=== PATIENT | male | born 1945 | race Caucasian/White ===

== ENCOUNTER 2017-08-23 09:39 | Inpatient (IN) ==
--- OUTSIDE RECORDS SUMMARY | 2017-08-23 10:04 | External Medical Summary ---
:1945 Author Organization [employer] Care Team Providers Name Role Phone Tuyet Frenchbraydenrossshameka Provider Role Unavailable Allergies, Adverse Reactions, Alerts Substance Reaction Event Type Clinoril Info Not Available Drug Allergy Zestril Info Not Available Non Drug Allergy Problems Problem Type Condition Code Onset Dates Condition Status Problem Atrial fibrillation 427.31 Active Problem Ventricular Tachycardia, Sustained 427.1 Active Problem S/P Bivent ICD V45.02 Active Problem Congestive Heart Failure, 428.0 Active Unspecified Problem Hyperlipidemia 272.4 Active Problem CAD (coronary artery disease) I25.10 Active Problem Hypothyroidism 244.9 Active Problem Atrial fibrillation 427.31 Active Problem CAD 414.01 Active Problem Chronic Anticoagulation V58.61 Active Assessment Biventricular ICD (implantable Z95.810 Active cardioverter-defibrillator) in place Assessment CAD (coronary artery disease) I25.10 Active Assessment VT (ventricular tachycardia) I47.2 Active Problem High Risk Med V58.69 Active Assessment Congestive heart failure I50.9 Active Problem Cardiomyopathy, Ischemic 414.8 Active Medications Medication Code Code Instructions Start End Status Dosage System Date Date Aspirin [facility] [address]-95 81 MG Orally 1/4 tablet Once a day Spironolactone [facility] [address]-67 25 MG Orally qd 1 tablet Allopurinol [facility] [address]-46 100 MG Orally 1 tablet Once a day Asmanex HFA [facility] [address]-21 100 MCG/ACT 2 puffs in Inhalation Once the a day evening Digoxin [facility] [id number] 125 TAKE ONE TABLET BY MOUTH DAILY Magnesium [facility] [address]73-[address]700 400 mg Orally 1 tablets Once a day Furosemide [facility] [address]-79 40 MG Orally 1 tablet Twice a day Amiodarone HCl [facility] [address]-85 200 MG Orally 1 tablet Once a day Vitamin B-[address] [facility] [address]-75 2000 mg Orally 1 tablet Once a day Cozaar [facility] 45997112263 50 TAKE ONE TABLET BY MOUTH DAILY Januvia [facility] [address]-92 25 MG Orally 1 tablet Once a day Coumadin [facility] [address]-08 3 MG Orally qd as directed Levothyroxine [facility] [address]-53 50 MCG Orally 1 tablet Sodium Once a day on an empty stomach in the morning Metoprolol [facility] 31981291159 100 Orally 1 tablet Succinate twice a day Crestor [facility] [address]-43 20 MG Orally 1/2 tablet Once a day oxgen [facility] 0 qhs 4L Metoprolol [facility] 76688442771 100 TAKE ONE Succinate ER TABLET BY MOUTH TWICE A DAY Folic Acid [facility] [address]-81 1 MG Orally 1 tablet Once a day Klor-Con M10 [facility] [address]-70 10 MEQ Orally 1 tablet Twice a day Procedures Procedure Coding System Code Date Ofc Program ICD Dual, Staff CPT-4 19426 Aug 27, 2016 Office Visit, Est Pt., Level 4 CPT-4 90779 Aug 27, 2016 Vital Signs Date/Time: Aug 27, 2016 BMI 31.66 Index Weight 227 lbs Height 71 in Cardiac Monitoring Heart Rate 60 /min Oximetry 96 % Blood Pressure Diastolic 66 mm Hg Blood Pressure Systolic 100 mm Hg Results No Known Results Summary Purpose [employer] Submission
--- OUTSIDE RECORDS SUMMARY | 2017-08-23 10:04 | External Medical Summary ---
:1945 Author Organization [employer] Care Team Providers Name Role Phone Tatianna French Provider Role Unavailable Allergies No Known Allergies Problems Problem Type Condition Code Onset Dates Condition Status Problem Atrial fibrillation 427.31 Active Problem Ventricular Tachycardia, Sustained 427.1 Active Problem S/P Bivent ICD V45.02 Active Problem High Risk Med V58.69 Active Problem Cardiomyopathy, Ischemic 414.8 Active Problem Congestive Heart Failure, 428.0 Active Unspecified Problem Hyperlipidemia 272.4 Active Problem CAD (coronary artery disease) I25.10 Active Problem Hypothyroidism 244.9 Active Problem Atrial fibrillation 427.31 Active Problem CAD 414.01 Active Problem Chronic Anticoagulation V58.61 Active Medications No Known Medications Results No Known Results Summary Purpose [employer] Submission
--- NOTE | 2017-08-23 10:21 | Emergency Department Report ---
Chest Pain HPI - General Chief Complaint: Chest Pain Stated Complaint: chest pain when coughing Time Seen by Provider: 08/23/17 10:18 Source: patient, family () Mode of arrival: ambulatory Limitations: other (poor historian) - History of Present Illness HPI narrative: Patient was diagnosed with probable pneumonia on August 08 and completed antibiotics recently for that. states that patient has really never regained his strength following that diagnosis. Patient also has a history of congestive heart failure. Patient last saw Dr. Pascual within the past week however was not as weak as he is at this time. Patient complains of chest pain with breathing and coughing. reports a productive cough that is occasionally colored yellow but is normally clear. states that this morning the patient seemed very weak and just not himself, and having had been ill since early July, patient was brought to the emergency department. reports that he rarely complains of CP so that concerned her also. He is alert and oriented. He is in no acute distress. He is a poor historian however. Patient's blood pressure is 79 systolically, states normal blood pressure for patient is 90 systolically; Patient does have hx of HTN. Patient also did take his blood pressure medications this morning. Room air sats 88-92 % Patient has home oxygen that he uses at ; states room air sats at home during the day usually 95%, even recently. Patient is in a paced rhythm. Patient deny any fevers, however states he has been more chilled than normal. complaint: chest pain, other Occurred At: home (and coughing) Onset (ago): week(s) Duration: intermittent Onset: other (and coughing) Pain location: substernal Severity: similar to previous episodes Severity scale (1-10): 10 ("when it hits") Quality: sharp Relieving factors: nothing Exacerbating factors: other (coughing or deep breathing) Context: recent illness (pneumonia) Associated symptoms: cough Nitro Today: no nitro taken today - Related Data Home Medications Medication Instructions Recorded Confirmed Furosemide 40 mg PO DAILY #0 12/26/08 08/23/17 Spironolactone [Aldactone] 25 mg PO DAILY #0 04/18/09 08/23/17 Folic Acid 1 mg PO DAILY #0 08/01/11 08/23/17 Magnesium Oxide 400 mg PO DAILY #0 08/01/11 08/23/17 Allopurinol 100 mg PO DAILY #0 04/04/12 08/23/17 Levothyroxine Sodium 50 mcg PO DAILY #0 09/09/13 08/23/17 Metoprolol Succinate 100 mg PO BID #0 09/09/13 08/23/17 Aspirin [Aspirin EC] 81 mg PO DAILY #0 11/29/16 08/23/17 Cyanocobalamin/Cobamamide [B-12 5,000 mcg SL DAILY #0 11/29/16 08/23/17 5,000 Mcg Sublingual Tab] Digoxin 125 mcg PO DAILY #0 11/29/16 08/23/17 Rosuvastatin Calcium 10 mg PO HS #0 11/29/16 08/23/17 Warfarin Sodium 3 mg PO SuTuThSa@1700 #0 11/29/16 08/23/17 Warfarin Sodium 6 mg PO MoWeFr@1700 #0 11/29/16 08/23/17 Cholecalciferol (Vitamin D3) 1,000 unit PO DAILY 08/23/17 08/23/17 [Vitamin D3] Cyanocobalamin (Vitamin B-12) 1,000 mcg PO DAILY 08/23/17 08/23/17 [Vitamin B-12] Allergies Allergy/AdvReac Type Severity Reaction Status Date / Time lisinopril Allergy Unknown Verified 08/23/17 09:50 sulindac Allergy Unknown Verified 08/23/17 09:50 Review of Systems All systems: reviewed and negative except as stated Constitutional: Reports: as per HPI, chills, weakness. Denies: fever Eyes: Denies: eye pain ENT: Denies: ear pain, throat pain Cardiovascular: Reports: as per HPI, chest pain Respiratory: Reports: as per HPI, cough Gastrointestinal: Denies: abdominal pain, nausea, vomiting, diarrhea Genitourinary: Denies: urgency, dysuria Musculoskeletal: Denies: back pain, joint swelling Integumentary: Denies: rash Neurological: Reports: weakness (generalized). Denies: headache, numbness PFSH Patient Stated Medical History Cataracts Yes Hypertension Yes Sleep Apnea Yes Diabetes Mellitus Type 2 Yes Hx Renal Disease Yes Clinic Medical History Digitalis toxicity (Acute Medical) - Social History Smoking status: Former smoker Physical Exam - Limitations Limitations: no limitations - General General appearance: alert, other (generalized weak) - Normal Exams: Head:: Normocephalic without trauma Eyes:: Pupils are PERRLA w/ EOMI, No scleral icterus, irritation, or foreign bodies noted ENMT:: No facial trauma, nasal exudates, pharyngeal erythema, or exudates are noted Neck:: Full range of motion, without adenopathy, JVD, bruits or thyromegaly Abdomen:: Bowel sounds positive, soft, non-tender, non-distended, no hepatosplenomegaly, masses or bruits noted Lymphatic:: No lymphadenopathy, or lymphedema noted Musculoskeletal:: No tenderness, or deformity noted, good range of motion, all extremities Integumentary:: No rashes, hives, or bruising noted, hair and nails, without abnormality Neurological:: Patient is alert Psychiatric:: Patient exhibits, appropriate attention, emotion and affect - Respiratory Respiratory exam: Present: crackles - Cardiovascular Cardiovascular exam: Present: regular rate Course Course Narrative: Chest x-ray compared to chest x-ray obtained August 08 viewed by ED physician. No worsening from prior xray. - Reevaluation(s) Reevaluation #2 Time Reevaluation: 12:03 (room air sats are 88-92%. Patient's BNP is elevated at 14,000, there is no peripheral edema noted. Patient's dig level is toxic at 3.3. Will admit to hospitalist service diagnosis of dig toxicity) - Consultations Consultation #1: Shoshana Time: 12:03 Vital Signs Pulse Rate 60 08/23/17 09:45 Temperature 98.2 F 08/23/17 09:52 Pulse Rate 60 08/23/17 12:00 Respiratory Rate 24 08/23/17 12:00 Blood Pressure 84/58 08/23/17 12:00 Pulse Oximetry 89 L 08/23/17 12:00 Chest Pain - Lab Data Result diagrams: 08/23/17 10:34 08/23/17 10:26 Lab Results 08/23/17 08/23/17 08/23/17 Range/Units 10:26 10:34 10:34 WBC 12.0 H (4.5-11.0) T/MM3 RBC 4.12 L (4.50-5.90) M/MM3 Hgb 12.6 L (13.5-17.5) GM/DL Hct 39.0 L (41-53) % MCV 94.7 (80-100) UM3 MCH 30.6 (26-34) UUG MCHC 32.3 (31-37) GM/DL RDW Std Deviation 60.1 H (36.9-50.2) FL Plt Count 208 (130-400) T/MM3 MPV 10.5 (9.4-12.4) UM3 Immature Gran % (Auto) 0.5 (0.0-0.5) % Neut % (Auto) 80.0 H (33-66) % Lymph % (Auto) 6.4 L (23-45) % Bowman % (Auto) 12.5 H (0-9.0) % Eos % (Auto) 0.3 (0-4) % Baso % (Auto) 0.3 (0-2) % Neut # (Auto) 9.6 H (1.8-7.7) T/MM3 Lymph # (Auto) 0.8 L (1-4.8) T/MM3 Bowman # (Auto) 1.5 H (0-0.8) T/MM3 Eos # (Auto) 0.0 (0-0.5) T/MM3 Baso # (Auto) 0.0 (0-0.2) T/MM3 Abs Immat Gran (auto) 0.06 H (0.00-0.03) T/MM3 INR (0.99-1.21) Turbidity < 20 (0-20) Sodium 136 (134-144) MEQ/L Potassium 4.6 (3.6-5) MEQ/L Chloride 101 (98-107) MEQ/L Carbon Dioxide 29 (22-30) MEQ/L Anion Gap 6 (5-15) MEQ/L BUN 24.0 H (9-20) MG/DL Creatinine 1.3 (0.8-1.5) MG/DL GFR Calculation 54 BUN/Creatinine Ratio 19 (6-26) RATIO Glucose 117 H (75-110) MG/DL Calculated Osmolality 267 (261-280) MOSM/KG Calcium 8.2 L (8.4-10.2) MG/DL Magnesium 2.1 (1.6-2.3) MG/DL Total Bilirubin 1.40 H (0.20-1.30) MG/DL Icterus Index < 2 (0-7) AST 64 H (17-59) U/L ALT 60 (21-72) U/L Alkaline Phosphatase 88 (38-126) U/L Troponin I 0.013 (0-0.12) ng/ml B-Natriuretic Peptide 44988 H (0-175) pg/mL Total Protein 7.0 (6.3-8.2) G/DL Albumin 3.2 L (3.5-5.0) G/DL Globulin 3.8 H (2.4-3.6) G/DL Albumin/Globulin Ratio 0.8 L (1.1-2.2) RATIO Plasma Lactate 1.3 (0.6-2.2) MMOL/L Procalcitonin < 0.05 NG/ML Specimen Hemolysis 58 H (0-25) Digoxin 3.3 H* (0.8-2.0) NG/ML 08/23/ Range/Units 10:34 WBC (4.5-11.0) T/MM3 RBC (4.50-5.90) M/MM3 Hgb (13.5-17.5) GM/DL Hct (41-53) % MCV (80-100) UM3 MCH (26-34) UUG MCHC (31-37) GM/DL RDW Std Deviation (36.9-50.2) FL Plt Count (130-400) T/MM3 MPV (9.4-12.4) UM3 Immature Gran % (Auto) (0.0-0.5) % Neut % (Auto) (33-66) % Lymph % (Auto) (23-45) % Bowman % (Auto) (0-9.0) % Eos % (Auto) (0-4) % Baso % (Auto) (0-2) % Neut # (Auto) (1.8-7.7) T/MM3 Lymph # (Auto) (1-4.8) T/MM3 Bowman # (Auto) (0-0.8) T/MM3 Eos # (Auto) (0-0.5) T/MM3 Baso # (Auto) (0-0.2) T/MM3 Abs Immat Gran (auto) (0.00-0.03) T/MM3 INR 2.73 H (0.99-1.21) Turbidity (0-20) Sodium (134-144) MEQ/L Potassium (3.6-5) MEQ/L Chloride (98-107) MEQ/L Carbon Dioxide (22-30) MEQ/L Anion Gap (5-15) MEQ/L BUN (9-20) MG/DL Creatinine (0.8-1.5) MG/DL GFR Calculation BUN/Creatinine Ratio (6-26) RATIO Glucose (75-110) MG/DL Calculated Osmolality (261-280) MOSM/KG Calcium (8.4-10.2) MG/DL Magnesium (1.6-2.3) MG/DL Total Bilirubin (0.20-1.30) MG/DL Icterus Index (0-7) AST (17-59) U/L ALT (21-72) U/L Alkaline Phosphatase (38-126) U/L Troponin I (0-0.12) ng/ml B-Natriuretic Peptide (0-175) pg/mL Total Protein (6.3-8.2) G/DL Albumin (3.5-5.0) G/DL Globulin (2.4-3.6) G/DL Albumin/Globulin Ratio (1.1-2.2) RATIO Plasma Lactate (0.6-2.2) MMOL/L Procalcitonin NG/ML Specimen Hemolysis (0-25) Digoxin (0.8-2.0) NG/ML Disposition Clinical Impression: Digitalis toxicity [place] [facility] [place] Stable Prescriptions: No Action Furosemide 40 mg PO DAILY #0 Magnesium Oxide 400 mg PO DAILY #0 Allopurinol 100 mg PO DAILY #0 Levothyroxine Sodium 50 mcg PO DAILY #0 Metoprolol Succinate 100 mg PO BID #0 Aspirin [Aspirin EC] 81 mg PO DAILY #0 Cyanocobalamin/Cobamamide [B-12 5,000 Mcg Sublingual Tab] 5,000 mcg SL DAILY #0 Warfarin Sodium 3 mg PO SuTuThSa@1700 #0 Digoxin 125 mcg PO DAILY #0 Warfarin Sodium 6 mg PO MoWeFr@1700 #0 Cyanocobalamin (Vitamin B-12) [Vitamin B-12] 1,000 mcg PO DAILY Spironolactone [Aldactone] 25 mg PO DAILY #0 Folic Acid 1 mg PO DAILY #0 Rosuvastatin Calcium 10 mg PO HS #0 Cholecalciferol (Vitamin D3) [Vitamin D3] 1,000 unit PO DAILY Referrals: River Noel MD [Family Provider] - Time of Disposition: 12:05 - Seen By: midlevel
[2017-08-23] MEDS: SALINE FLUSH 10ml SYRINGE IVF PRN ×2 (11:15→12:09)
[2017-08-23] MEDS ORDERED: FUROSEMIDE 40 MG/4 ML INJECTION IVP ONE (11:51)
[2017-08-23 13:35] VITALS: BMI 27.9
--- NOTE | 2017-08-23 13:50 | History & Physical Report ---
History of Present Illness Date: 08/23/17 Chief complaint: cough, chest pain and progressive weakness HPI: Patient presents to ED today with 3 wk h/o cough, progressive weakness and chest pain with coughing over the past few days. He was seen by his PCP Aug 08 with CXR showing pulmonary edema not excluding possibility of viral or atypical pneumonia. states pt was treated with 10 days of cephalexin and "a shot in the office." She didn't feel he got better and, if anything, maybe got worse while on the atbx. He has clear sputum production occasionally. Patient has CHF and interstitial lung disease, but usually doesn't have a cough or weakness like he does currently. Patient has multiple comorbidities and follows with several specialists. Per , last A1C was 5.6 earlier this year. Patient has lost weight and changed his diet and no longer requires diabetic medication. She also reports his last echocardiogram was almost a year ago. She reports his ejection fraction was 15% . He is due for echocardiogram in September. Per pulmonology office notes, he has abnormal PFTs. PFTs were most recently performed 06/15 and were "relatively stable compared to last year except for decline in DLCO. His TLC is preserved and his vital capacities remain normal." Recommendation from that visit was to repeat PFT in one year, follow-up with oven technician in 6 months and reevaluate his obstructive sleep apnea given his significant weight loss. His last "shock" from his ICD was in December 2016. In ED, patient had repeat CXR showing minimal change from previous on 08/08. His procalcitonin and lactate were normal and WBC was 12K. His dig was elevated at 3.3. His BNP was significantly elevated at 14,100. He was given Lasix 40mg IV in ED for pulmonary edema. He takes Lasix 40mg po qd, although last office note from cardiology lists dose of 40mg BID. Given his elevated digoxin level, patient was admitted to the hospitalist service for observation. Review of Systems All systems PM: 10-point ROS was reviewed, no additional remarkable complaints except - Constitutional Constitutional: Present: weight loss (intentional) - EENMT EENMT Comments: cold type sxs per - Cardiovascular Cardiovascular: Present: chest pain (w/ cough) - Respiratory Respiratory: Present: cough, dyspnea on exertion (no worse than usual) - Gastrointestinal Gastrointestinal: Present: constipation (occasional) - Neurological Neurological: Present: weakness - Endocrine Endocrine: Present: other (chronic body temp of 96 - per ) PFSH Medical History CKD - Stage 3 CAD COPD BUZZ - (on CPAP) Ischemic cardiomyopathy Interstitial lung disease CHF Paroxysmal VT - (has biventricular ICD) Atrial fibrillation Hyperlipidemia HTN Diabetes - Type 2 Hypothyroidism Gout H/o AAA repair H/o bladder CA Surgical History: Abdominal aortic aneurysm repair (2012 - age 68), colonoscopy (08/09 - hyperplastic polyps), inguinal herniorrhaphy, L (2008), AICD replacement (2013), vasectomy, nasal endoscopy, heart cath w/ stent (1997), heart cath 2015 - [place] per , cystoscopy (09/2006), TURP Family History: Father-emphysema Mother-pacemaker, hypertension, coronary artery disease Son-hyperlipidemia Son-Hyperlipidemia, Pericarditis Brother-MS Brother-Pacemaker - Social History Smoking status: Former smoker Packs-years: 40 Substance use type: does not use Alcohol intake frequency: does not drink Housing: house Household members: spouse Current occupational status: retired Does patient use chewing tobacco?: No Current residence: Apartment/Private Home Social history: PCP - Dr. Noel Cell Maker - Dr. Cesar Arias Jacker Feeder - Dr. French Urologist - Dr King Measurement Supervisor- Medications Home Medications Medication Instructions Recorded Confirmed Type Furosemide 40 mg PO DAILY #0 12/26/08 08/23/17 History Spironolactone [Aldactone] 25 mg PO DAILY #0 04/18/09 08/23/17 History Folic Acid 1 mg PO DAILY #0 08/01/11 08/23/17 History Magnesium Oxide 400 mg PO DAILY #0 08/01/11 08/23/17 History Allopurinol 100 mg PO DAILY #0 04/04/12 08/23/17 History Levothyroxine Sodium 50 mcg PO DAILY #0 09/09/13 08/23/17 History Metoprolol Succinate 100 mg PO BID #0 09/09/13 08/23/17 History Aspirin [Aspirin EC] 81 mg PO DAILY #0 11/29/16 08/23/17 History Cyanocobalamin/Cobamamide [B-12 5,000 mcg SL DAILY #0 11/29/16 08/23/17 History 5,000 Mcg Sublingual Tab] Digoxin 125 mcg PO DAILY #0 11/29/16 08/23/17 History Rosuvastatin Calcium 10 mg PO HS #0 11/29/16 08/23/17 History Warfarin Sodium 3 mg PO SuTuThSa@1700 #0 11/29/16 08/23/17 History Warfarin Sodium 6 mg PO MoWeFr@1700 #0 11/29/16 08/23/17 History Cholecalciferol (Vitamin D3) 1,000 unit PO DAILY 08/23/17 08/23/17 History [Vitamin D3] Cyanocobalamin (Vitamin B-12) 1,000 mcg PO DAILY 08/23/17 08/23/17 History [Vitamin B-12] Allergies Allergy/AdvReac Type Severity Reaction Status Date / Time lisinopril Allergy Unknown Verified 08/23/17 09:50 sulindac Allergy Unknown Verified 08/23/17 09:50 Exam Vital Signs: Temperature 97.7 F 08/23/17 13:27 Pulse Rate 67 08/23/17 13:27 Respiratory Rate 20 08/23/17 13:27 Blood Pressure 92/62 08/23/17 13:27 Pulse Oximetry 95 08/23/17 13:27 Height/Weight/BMI: Height 1.73 m Weight 83.3 kg Body Mass Index 27.9 - Constitutional Present: no acute distress, well nourished, well developed - Routine HEENT Exam Head: Present: normocephalic, atraumatic Eye: Present: EOMI, PERRL ENT: Present: mucous membranes moist, oropharynx clear - Routine Neck Exam Present: supple. Absent: lymphadenopathy, thyromegaly - Routine Respiratory Exam Present: CTA bilaterally, crackles (slight - RLL). Absent: wheezes - Routine Cardiovascular Exam Present: RRR, murmur (Gr 2 systolic) - Routine Abdominal Exam Present: soft, normoactive bowel sounds, non distended. Absent: tenderness - Routine Extremities Exam Present: no edema, normal capillary refill - Routine Skin Exam Present: dry, warm, ecchymosis (arms b/l) - Routine Neurological Exam Present: alert, oriented X3 CN 3-12 intact - Routine Psychiatric Exam Present: normal affect, cooperative Results - Labs CBC & Chem 7: 08/23/17 10:34 08/23/17 10:26 Labs: Laboratory Tests 08/23/17 10:34 INR 2.73 H Laboratory Tests 08/23/17 10:26 Total Bilirubin 1.40 H AST 64 H ALT 60 Laboratory Tests 08/23/17 10:26 Troponin I 0.013 B-Natriuretic Peptide 50971 H Laboratory Tests 08/23/17 08/23/17 08/23/17 10:26 10:34 14:36 Plasma Lactate 1.3 1.7 Procalcitonin < 0.05 Laboratory Tests 08/23/17 12:36 Ur Collection Type Urine, clean catch Urine Color Yellow Urine Clarity Clear Urine pH 6.5 Ur Specific [place] 1.010 L Urine Protein Negative Urine Glucose (UA) Negative Urine Ketones Negative Urine Occult Blood Trace-intact Urine Nitrate Negative Urine Bilirubin Negative Urine Urobilinogen 0.2 Ur Leukocyte Esterase Negative Laboratory Tests 08/23/17 10:26 Digoxin 3.3 H* Assessment and Plan (1) Digitalis toxicity Current visit: Yes Status: Acute Assessment and Plan: Admission diagnoses Digitalis toxicitiy Leukocytosis Chest pain - likely pleuritic Cough - r/o interstitial lung ds vs infectious process (bacterial vs viral) vs CHF exacerbation Chronic diagnoses CKD - Stage 3 CAD COPD BUZZ - (on CPAP and 4L O2 at [facility]) Ischemic cardiomyopathy Interstitial lung disease CHF Paroxysmal VT - (has biventricular ICD) Paroxysmal atrial fibrillation (chronic anticoagulation with warfarin) Hyperlipidemia HTN Diabetes - Type 2 (controlled w/o medication) Hypothyroidism Gout H/o AAA repair H/o bladder CA Plan: Admit to observation under hospitalist service, Dr. Anna attending. Check respiratory panel and sputum culture given respiratory sxs. Start Duoneb treatments, IS, acapella. Dr Anna to determine if patient needs antibiotics. Given the neg lactate and procalcitonin and lack of improvement on recent atbx, suspect his cough/ weakness is unlikely bacterial in etiology. Check glucose daily after supper as patient has been under good control. Will check more frequently if sugars are elevated. Hold dig and recheck level in am. Serial troponins given cardiac history and presenting c/o chest pain. Pharmacy consult for warfarin. Warfarin for VTE prophylaxis. Monitor I&O and daily weights. Consider echocardiogram vs waiting to do this outpatient through his food services coordinator. ( reports he is due in Sep.) Consider another dose of IV Lasix tomorrow depending on his kidney function in the am. Patient wishes to be a FULL CODE Care to return to Dr. Noel on dismissal. Case discussed with Dr. Anna and family. Previous notes reviewed from pulmonology, cardiology and PCP. Maikel Anna M.D. 08/23/17 6:37 PM I have independently evaluated and examined this patient. I reviewed the chart, the patient's history, and the FILM PRINTER/PA's documented findings as above. We discussed and formulated the assessment and plan as above with additions as below: Mr. Zazueta is hard of hearing and often defers history to his . The patient reports persistent cough as described previously but he indicates cough is been getting better progressively. Mrs. Zazueta indicated that cough is not really the concern that brought him to the emergency room today but instead the patient's complaint of chest pain over the last 2 days. Patient reports that chest pain is substernal and rubs over his anterior chest wall fairly widely describing the pain. He thinks it gets worse when he breathes in and reports it' s definitely worse when he coughs. He's had it longer than 2 days but he only told his about it 2 days ago. His weight has been stable over the past couple of days but he is intentionally lost 40 pounds in the past 6 months. He has had some daytime hypoxia recently for which they began using oxygen intermittently while awake instead of just 4 L at night as previously prescribed. His also reports gradually progressive weakness and that the patient moves around more slowly and cannot walk as far as he did a couple weeks ago. Chart review indicates digoxin level was slightly elevated at 2.2 on 12/09/16. Patient denies palpitations. There are bibasilar crackles in the posterior lung galeano but respirations are nonlabored and air flow is good. Oxygen saturation 84% on room air. Cardiac rhythm is regular with gallop present, neck veins are distended and there is suggestion of HJR Anterior chest wall/costochondral margins nontender to palpation No lower extremity edema Abdomen benign Chest x-ray reviewed by myself-marked cardiomegaly, mild increased vascular markings without focal infiltrate. EKG also reviewed by myself demonstrating biventricular pacing and no significant change from past EKG. Respiratory viral panel positive for rhinovirus. Convert to inpatient due to hypoxia. Symptomatic treatment of cough-Tessalon Perles ordered, respiratory precautions initiated. Suspect there is a component of volume overload contributing to cough in addition to viral URI. Diuresis, hold digoxin. Decrease frequency of digoxin dosing to Friday/Friday /Friday at discharge. Discussed with ER provider, outpatient records and past hospital records reviewed. DVT Prophylaxis: Coumadin Resuscitation Status: Full Code Hospital Course Summary Disclaimer: The visit summary below is not to be considered part of the above Progress Note. Hospital Course: Admission diagnoses Digitalis toxicitiy Leukocytosis Chest pain - pleuritic (neg troponin) Cough - r/o interstitial lung ds vs infectious process (bacterial vs viral) vs CHF exacerbation Chronic diagnoses CKD - Stage 3 CAD COPD BUZZ - (on CPAP and 4L O2 at [facility]) Ischemic cardiomyopathy Interstitial lung disease CHF Paroxysmal VT - (has biventricular ICD) Paroxysmal atrial fibrillation (chronic anticoagulation with warfarin) Hyperlipidemia HTN Diabetes - Type 2 (controlled w/o medication) Hypothyroidism Gout H/o AAA repair H/o bladder CA 08/23/17 -Hospital Admission for Observation Admit to observation under hospitalist service, Dr. Anna attending. Check respiratory panel and sputum culture given respiratory sxs. Start Duoneb treatments, IS, acapella. Check glucose daily after supper as patient has been under good control. Will check more frequently if sugars are elevated. Hold dig and recheck level in am. Pharmacy consult for warfarin. Warfarin for VTE prophylaxis. Monitor I&O and daily weights. Consider echocardiogram vs waiting to do this outpatient through his food services coordinator. ( reports he is due in Sep.) Patient wishes to be a FULL CODE Care to return to Dr. Noel on dismissal. Case discussed with Dr. Anna and family. Previous notes reviewed from pulmonology, cardiology and PCP.
[2017-08-23] MEDS ORDERED: WARFARIN - PHARMACY CONSULT MC ONE (14:55)
[2017-08-23] MEDS ORDERED: WARFARIN 3 MG PO ONE (15:00)
--- NOTE | 2017-08-23 15:22 | Pharmacy Consult ---
Pharmacy Consult-Warfarin - Consult Information COUMADIN CONSULT (Initial): Dx: A. FIB Baseline INR = 2.73. Will give Warfarin 3mg today from his home supply. Thank you.
[2017-08-23] MEDS: ALBUTEROL/IPRATROPIUM 2.5mg-0.5mg/3ml NEB AEROSOL SCH ×2 (15:38→19:12)
[2017-08-23] MEDS: ROSUVASTATIN 20 MG TABLET PO SCH (22:15)
[2017-08-23] MEDS: ACETAMINOPHEN 325 MG TABLET PO PRN (23:08)
[2017-08-24] MEDS: ALBUTEROL/IPRATROPIUM 2.5mg-0.5mg/3ml NEB AEROSOL SCH ×4 (07:34→19:54)
[2017-08-24] MEDS: ALLOPURINOL 100 MG TABLET PO SCH (08:02)
[2017-08-24] MEDS: FOLIC ACID 1 MG TABLET PO SCH (08:02)
[2017-08-24] MEDS: MAGNESIUM OXIDE 400 MG TABLET PO SCH (08:03)
[2017-08-24] MEDS: ASPIRIN *EC* 81 MG TABLET PO SCH (08:03)
[2017-08-24] MEDS: CYANOCOBALAMIN (B-12) 500mcg TABLET PO SCH (08:03)
[2017-08-24] MEDS: BENZONATATE 100 MG CAPSULE PO PRN ×2 (08:03→21:18)
--- NOTE | 2017-08-24 08:08 | Pharmacy Consult ---
Pharmacy Consult-Warfarin - Laboratory Information 08/24/17 04:21 INR 2.61 H - Consult Information COUMADIN CONSULT (Recurring): PT'S INR IS 2.61 TODAY. HIS HOME MED DOSE IS 3 MG ON SUN, TUES,THURS AND SAT AND 6 MG ON MON, WED, FRI. PT WILL GET HIS 3 MG DOSE TODAY. PHARMACY WILL MONITOR HIS INR. Thank you. Dione Webber, PharmD
[2017-08-24] MEDS: LEVOTHYROXINE 50 MCG TABLET PO SCH (08:31)
[2017-08-24] MEDS ORDERED: CYANOCOBALAMIN PO SCH (09:00)
[2017-08-24] MEDS ORDERED: COBAMAMIDE PO SCH (09:00)
--- NOTE | 2017-08-24 09:28 | XRay Report ---
Indication: chest pain PROCEDURE: XR chest 1V: Encounter: Initial Comparison: August 08, 2017 Findings: Aeration of the lungs has slightly improved with decreasing pulmonary edema. Mild to moderate amount remaining. Small pleural effusions. No pneumothorax. Cardiac silhouette remains severely enlarged. Left pacemaker defibrillator. Mediastinal contours are stable. Impression: Mild to moderate pulmonary edema, possibly due to CHF. .
[2017-08-24] MEDS: SPIRONOLACTONE 25 MG TABLET PO SCH (09:30)
[2017-08-24] MEDS: FUROSEMIDE 40 MG TABLET PO SCH (09:30)
[2017-08-24] MEDS: REFRESH CELLUVISC 1% Eye Drops 0.4ml LEFT EYE SCH ×3 (09:30→21:22)
--- NOTE | 2017-08-24 09:31 | Progress Note ---
<Kayla Navarro - Last Filed: 08/24/17 09:28> - Date 08/24/17 Subjective: Blayne is seen today in follow up for his digoxin toxicity and enterovirus. He is seen while sitting up in bed with his , Cathy, at the bedside. He reports that he is feeling better and states that his cough is significantly improved. He denies any fevers, chills, chest pain or shortness of breath. His appetite is good and his bowels are moving. No abdominal pain, nausea, vomiting, dysuria or diarrhea. He continues to require daytime oxygen, currently at 1-2L. Blood pressure has been low. Overnight, blood pressure was noted to be 70 systolic. Telehospitalist was consulted and Blayne received a 500cc bolus of NS with minimal improvement. Currently 88/60. Telemetry continues to show sinus rhythm. Labs revealed resolved leukocytosis and otherwise stable. Slight increase in digoxin level noted with subsequent increase in SCr. Serial troponins trending up slightly. Patient denies chest pain today. No visual changes and gait is steady. Objective Vital signs: Temperature 97.1 F 08/24/17 07:51 Pulse Rate 60 08/24/17 08:13 Respiratory Rate 20 08/24/17 07:51 Blood Pressure 84/57 08/24/17 08:13 Pulse Oximetry 95 08/24/17 08:13 Rhythm: Normal Sinus Rhythm Height/Weight/BMI: Weight 182 lb 15.739 oz - Constitutional Present: no acute distress, well nourished, well developed, cooperative - Routine HEENT Exam Head: Present: normocephalic, atraumatic Eye: Present: PERRL. Absent: conjunctival icterus ENT: Present: mucous membranes moist - Routine Respiratory Exam Present: decreased breath sounds, crackles (bibasilar). Absent: wheezes Comments: no cough on exam. - Routine Cardiovascular Exam Present: RRR, S1, S2, murmur - Routine Abdominal Exam Present: soft, normoactive bowel sounds, non tender - Routine Extremities Exam Present: edema (1+ pitting), non tender, pulses intact. Absent: calf tenderness - Routine Back/Spine/Pelvis Exam Back/Spine: Present: full ROM. Absent: vertebral tenderness - Routine Musculoskeletal Exam Musculoskeletal: Present: normal gait, moving extremities well - Routine Skin Exam Present: intact, dry, warm. Absent: jaundice Comments: afebrile. - Routine Neurological Exam Present: alert, oriented X3, moving all extremities, normal speech - Routine Lymphatic Exam Lymphatic: Absent: lymphedema - Routine Psychiatric Exam Present: normal affect, cooperative Results - Labs CBC & Chem 7: 08/24/17 04:22 08/24/17 04:21 Assessment and Plan (1) Digitalis toxicity Current visit: Yes Status: Acute Assessment and Plan: Admission diagnoses Digitalis toxicitiy Leukocytosis Chest pain - likely pleuritic Cough - r/o interstitial lung ds vs infectious process (bacterial vs viral) vs CHF exacerbation Chronic diagnoses CKD - Stage 3 CAD COPD BUZZ - (on CPAP and 4L O2 at noc) Ischemic cardiomyopathy Interstitial lung disease CHF Paroxysmal VT - (has biventricular ICD) Paroxysmal atrial fibrillation (chronic anticoagulation with warfarin) Hyperlipidemia HTN Diabetes - Type 2 (controlled w/o medication) Hypothyroidism Gout H/o AAA repair H/o bladder CA Plan-08/24/17 (Mirakian): Overall, Blayne appears to be making gains. His cough has improved and he is feeling better. Respiratory panel on admission revealed positive enterovirus/rhinovirus. He remains afebrile and breathing is stable, though bibasilar crackles noted. Continue supplemental oxygen as needed to maintain SAO2>90%. Wean as able as he denies chronic use of daytime oxygen at home, though does chronically use 4L at night. Continue home CPAP at night. Continue Duoneb treatments and encourage incentive spirometry and acapella for pulmonary toileting. Tessalon pearls as needed for cough. Will continue to hold off on antibiotics given known viral component and patient remains afebrile and is clinically improving. Leukocytosis resolved. Weight reported at stable though patient continues to have 1+ pitting edema and bibasilar crackles. Given current blood pressure of 88/60, will hold metoprolol for the time being but continue home Lasix 40mg daily and spironolactone. reports blood pressure chronically 90's systolic. Will resume metoprolol with systolic at 90 or above. Given cardiomyopathy and low EF , suspect chronic hypotension. Patient remains asymptomatic. Digoxin level slightly elevated at 3.4. Continue to hold digoxin and expect resolution will take several days. Slight increase in SCr. Continue to monitor closely. Serial troponins revealed trending up at 0.013, 0.018, 0.022. Will recheck at 6 hours and continue to monitor. Continue to monitor closely on telemetry. Patient denies chest pain. Medical Administrative Technician in [place] is Dr. Aquino. INR therapeutic. Continue warfarin per pharmacy. Appreciate their time and expertise. Continue to monitor daily weight and I&O. Consider echocardiogram vs waiting to do this outpatient through his wait staff. ( reports he is due in Sep.) Will recheck CBC, CMP, Mag and digoxin in AM to monitor blood counts, electrolytes and renal function. LFT elevation resolved but total bilirubin trending up. Continue to monitor. DVT Prophylaxis: Coumadin Resuscitation Status: Full Code - Time spent with patient Time with patient PN: 35 minutes Hospital Course Summary Disclaimer: The visit summary below is not to be considered part of the above Progress Note. Hospital Course: Admission diagnoses Digitalis toxicitiy Leukocytosis Chest pain - pleuritic (neg troponin) Cough - r/o interstitial lung ds vs infectious process (bacterial vs viral) vs CHF exacerbation Chronic diagnoses CKD - Stage 3 CAD COPD BUZZ - (on CPAP and 4L O2 at [facility]) Ischemic cardiomyopathy Interstitial lung disease CHF Paroxysmal VT - (has biventricular ICD) Paroxysmal atrial fibrillation (chronic anticoagulation with warfarin) Hyperlipidemia HTN Diabetes - Type 2 (controlled w/o medication) Hypothyroidism Gout H/o AAA repair H/o bladder CA 08/23/17 -Hospital Admission for Observation Admit to observation under hospitalist service, Dr. Anna attending. Check respiratory panel and sputum culture given respiratory sxs. Start Duoneb treatments, IS, acapella. Check glucose daily after supper as patient has been under good control. Will check more frequently if sugars are elevated. Hold dig and recheck level in am. Pharmacy consult for warfarin. Warfarin for VTE prophylaxis. Monitor I&O and daily weights. Consider echocardiogram vs waiting to do this outpatient through his wait staff. ( reports he is due in Sep.) Patient wishes to be a FULL CODE Care to return to Dr. Noel on dismissal. Case discussed with Dr. Anna and family. Previous notes reviewed from pulmonology, cardiology and PCP. Plan-08/24/17 (Mirakian): Overall, Blayne appears to be making gains. His cough has improved and he is feeling better. Respiratory panel on admission revealed positive enterovirus/rhinovirus. He remains afebrile and breathing is stable, though bibasilar crackles noted. Continue supplemental oxygen as needed to maintain SAO2>90%. Wean as able as he denies chronic use of daytime oxygen at home, though does chronically use 4L at night. Continue home CPAP at night. Continue Duoneb treatments and encourage incentive spirometry and acapella for pulmonary toileting. Tessalon pearls as needed for cough. Will continue to hold off on antibiotics given known viral component and patient remains afebrile and is clinically improving. Leukocytosis resolved. Weight reported at stable though patient continues to have 1+ pitting edema and bibasilar crackles. Given current blood pressure of 88/60, will hold metoprolol for the time being but continue home Lasix 40mg daily and spironolactone. reports blood pressure chronically 90's systolic. Will resume metoprolol with systolic at 90 or above. Given cardiomyopathy and low EF , suspect chronic hypotension. Patient remains asymptomatic. Digoxin level slightly elevated at 3.4. Continue to hold digoxin and expect resolution will take several days. Slight increase in SCr. Continue to monitor closely. Serial troponins revealed trending up at 0.013, 0.018, 0.022. Will recheck at 6 hours and continue to monitor. Continue to monitor closely on telemetry. Patient denies chest pain. Medical Administrative Technician in [place] is Dr. Aquino. INR therapeutic. Continue warfarin per pharmacy. Appreciate their time and expertise. Continue to monitor daily weight and I&O. Consider echocardiogram vs waiting to do this outpatient through his wait staff. ( reports he is due in Sep.) Will recheck CBC, CMP, Mag and digoxin in AM to monitor blood counts, electrolytes and renal function. LFT elevation resolved but total bilirubin trending up. Continue to monitor. <Adeola Anna - Last Filed: 08/24/17 16:02> - Date 08/24/17 Results - Labs CBC & Chem 7: 08/24/17 04:22 08/24/17 04:21 Assessment and Plan (1) Digitalis toxicity Current visit: Yes Status: Acute Assessment and Plan: I have independently evaluated and examined this patient. I reviewed the chart, the patient's history, and the VICE PRESIDENT OF CONSULTING SERVICES/PA's documented findings as above. We discussed and formulated the assessment and plan as above with additions as below: Mr. Zazueta reports improvement in cough and resolution of anterior chest wall pain. His expressed concern about possible hematuria case his urine is orange today although nursing describe it is merely slightly "peach" tinged; patient denies dysuria. Blood pressure has been slightly lower than patient's norm. His reports that they check blood pressure twice daily and systolic is usually about 90 mm. Systolics today have ranged between 81-88 and patient denies lightheadedness or increased weakness compared to baseline. Patient denies nausea, anorexia, confusion, or visual/color changes. expresses concern about increased weakness however. NAD, alert Respirations nonlabored, crackles at the bases bilaterally L>R, no wheezing Regular rhythm; telemetry strips reviewed-consistently paced rhythm Symptomatically improved with diuresis however digoxin level remains elevated without clinical signs of toxicity nor any arrhythmias on telemetry. Continue to monitor. Reassess digoxin in a.m. Suspect digoxin level elevated for some time. Potassium level stable. PT/OT consults tomorrow morning. Hospital Course Summary Disclaimer: The visit summary below is not to be considered part of the above Progress Note.
[2017-08-24] MEDS ORDERED: WARFARIN 3 MG TABLET PO SCH (12:00)
[2017-08-24] MEDS: ROSUVASTATIN 20 MG TABLET PO SCH (21:17)
[2017-08-24] MEDS: ACETAMINOPHEN 325 MG TABLET PO PRN (21:18)
[2017-08-24] MEDS: SALINE FLUSH 10ml SYRINGE IVF PRN (21:26)
[2017-08-25] MEDS: LEVOTHYROXINE 50 MCG TABLET PO SCH (06:45)
[2017-08-25] MEDS: ALBUTEROL/IPRATROPIUM 2.5mg-0.5mg/3ml NEB AEROSOL SCH ×3 (07:29→16:59)
--- NOTE | 2017-08-25 09:07 | Pharmacy Consult ---
Pharmacy Consult-Warfarin - Laboratory Information 08/24/17 08/25/17 04:21 03:54 INR 2.61 H 2.31 H COUMADIN CONSULT: SHEILA on chronic anticoagulation for Paroxysmal A. Fib. Home dose reported as 6mg MO,RAMÓN,FR; 3mg YOO,,TH,SAT. Todays' INR = 2.31. And appears stable. Will continue the home dose - today will receive WARFARIN 6mg. Thank you.
[2017-08-25] MEDS: FUROSEMIDE 40 MG TABLET PO SCH (09:12)
[2017-08-25] MEDS: SPIRONOLACTONE 25 MG TABLET PO SCH (09:12)
[2017-08-25] MEDS: CYANOCOBALAMIN (B-12) 500mcg TABLET PO SCH (09:12)
[2017-08-25] MEDS: BENZONATATE 100 MG CAPSULE PO PRN (09:13)
[2017-08-25] MEDS: REFRESH CELLUVISC 1% Eye Drops 0.4ml LEFT EYE SCH ×3 (09:13→20:57)
[2017-08-25] MEDS: ASPIRIN *EC* 81 MG TABLET PO SCH (09:13)
[2017-08-25] MEDS: FOLIC ACID 1 MG TABLET PO SCH (09:13)
[2017-08-25] MEDS: ALLOPURINOL 100 MG TABLET PO SCH (09:13)
[2017-08-25] MEDS: MAGNESIUM OXIDE 400 MG TABLET PO SCH (09:13)
--- NOTE | 2017-08-25 11:12 | Progress Note ---
<Jena Barber Whitney - Last Filed: 08/25/17 11:08> - Date 08/25/17 Subjective: Blayne is doing better in some aspects, but is concerned about others. Cathy has noticed decreased UO and very dark colored urine. Cathy understands the CHF in/out balance well, but is concerned about being dehydrated. She also notes that SBP at home is usually above 90s, and he doesn't dip into the 80s very often. He had an episode of confusion last night - Cathy reports that this occurred during/after a coughing spell (? hypoxia) plus his temp was up slightly at 98.6 (baseline temp for him is 96). He was off oxygen for a little while yesterday afternoon. He is saturating in the upper 90s this am on 2L. Cathy also noticed abdominal distension but Blayne denies abdominal pain, n/v/d/ c. Objective Vital signs: Temperature 96.8 F 08/25/17 07:41 Pulse Rate 59 L 08/25/17 07:41 Respiratory Rate 17 08/25/17 07:41 Blood Pressure 85/56 08/25/17 07:41 Pulse Oximetry 96 08/25/17 07:41 Rhythm: Normal Sinus Rhythm Height/Weight/BMI: Weight 83 kg - Constitutional Present: no acute distress, well nourished, well developed - Routine HEENT Exam Head: Present: normocephalic Eye: Absent: conjunctival icterus, scleral injection ENT: Present: mucous membranes moist, oropharynx clear - Routine Respiratory Exam Present: crackles (Left) - Routine Cardiovascular Exam Present: RRR, S1, S2, murmur - Routine Abdominal Exam Present: normoactive bowel sounds, non tender, distended (mild) - Routine Extremities Exam Present: edema (trace B/L LE) - Routine Skin Exam Present: dry, warm - Routine Neurological Exam Present: alert, oriented X3, normal speech - Routine Psychiatric Exam Present: normal thought process, cooperative Results - Labs CBC & Chem 7: 08/25/17 03:54 08/25/17 03:54 Microbiology Results: Microbiology 08/23/17 19:45 Sputum, Expectorated Gram Stain - Final 08/23/17 19:45 Sputum, Expectorated Sputum Culture - Preliminary Culture Initiated - Results Pending Assessment and Plan (1) Digitalis toxicity Current visit: Yes Status: Acute Assessment and Plan: Admission diagnoses Digitalis toxicity Leukocytosis - resolved Chest pain - likely pleuritic Cough - r/o interstitial lung ds vs infectious process (bacterial vs viral) vs CHF exacerbation Rhinovirus Hyponatremia (08/25/17) Chronic diagnoses CKD - Stage 3 CAD COPD BUZZ - (on CPAP and 4L O2 at [facility]) Ischemic cardiomyopathy Interstitial lung disease CHF Paroxysmal VT - (has biventricular ICD) Paroxysmal atrial fibrillation (chronic anticoagulation with warfarin) Hyperlipidemia HTN Diabetes - Type 2 (controlled w/o medication) Hypothyroidism Gout H/o AAA repair H/o bladder CA Plan BUN and creatinine are slowly rising (28 and 1.5); oral fluid intake has been low; urine dark in color. Weight stable at 83 kg. This combined with lower-than- normal BP readings raises concerns about dehydration. Na slightly low at 132. He took spironolactone and furosemide this morning. Metoprolol was held d/t hypotension. Will place a hold on spironolactone and furosemide. Brief episode of confusion last night associated with coughing spell; suspect hypoxic in nature. Today, sats are upper 90s on 2L - attempt weaning. Dig decreased to 2.3. INR therapeutic. Evaluated by therapy - he required standby assist; they are recommending home with home health. Champ and Cathy live in [place] at [facility]. Tele - paced rhythm. DVT Prophylaxis: Coumadin Resuscitation Status: Full Code Hospital Course Summary Disclaimer: The visit summary below is not to be considered part of the above Progress Note. Hospital Course: Admission diagnoses Digitalis toxicitiy Leukocytosis Chest pain - pleuritic (neg troponin) Cough - r/o interstitial lung ds vs infectious process (bacterial vs viral) vs CHF exacerbation Chronic diagnoses CKD - Stage 3 CAD COPD BUZZ - (on CPAP and 4L O2 at [facility]) Ischemic cardiomyopathy Interstitial lung disease CHF Paroxysmal VT - (has biventricular ICD) Paroxysmal atrial fibrillation (chronic anticoagulation with warfarin) Hyperlipidemia HTN Diabetes - Type 2 (controlled w/o medication) Hypothyroidism Gout H/o AAA repair H/o bladder CA 08/23/17 -Hospital Admission for Observation Admit to observation under hospitalist service, Dr. Anna attending. Check respiratory panel and sputum culture given respiratory sxs. Start Duoneb treatments, IS, acapella. Check glucose daily after supper as patient has been under good control. Will check more frequently if sugars are elevated. Hold dig and recheck level in am. Pharmacy consult for warfarin. Warfarin for VTE prophylaxis. Monitor I&O and daily weights. Consider echocardiogram vs waiting to do this outpatient through his safe deposit box rental clerk. ( reports he is due in Sep.) Patient wishes to be a FULL CODE Care to return to Dr. Noel on dismissal. Case discussed with Dr. Anna and family. Previous notes reviewed from pulmonology, cardiology and PCP. Plan-08/24/17 (Ramon): Overall, Blayne appears to be making gains. His cough has improved and he is feeling better. Respiratory panel on admission revealed positive enterovirus/rhinovirus. He remains afebrile and breathing is stable, though bibasilar crackles noted. Continue supplemental oxygen as needed to maintain SAO2>90%. Wean as able as he denies chronic use of daytime oxygen at home, though does chronically use 4L at night. Continue home CPAP at night. Continue Duoneb treatments and encourage incentive spirometry and acapella for pulmonary toileting. Tessalon pearls as needed for cough. Will continue to hold off on antibiotics given known viral component and patient remains afebrile and is clinically improving. Leukocytosis resolved. Weight reported at stable though patient continues to have 1+ pitting edema and bibasilar crackles. Given current blood pressure of 88/60, will hold metoprolol for the time being but continue home Lasix 40mg daily and spironolactone. reports blood pressure chronically 90's systolic. Will resume metoprolol with systolic at 90 or above. Given cardiomyopathy and low EF , suspect chronic hypotension. Patient remains asymptomatic. Digoxin level slightly elevated at 3.4. Continue to hold digoxin and expect resolution will take several days. Slight increase in SCr. Serial troponins revealed trending up at 0.013, 0.018, 0.022. . INR therapeutic. Continue warfarin per pharmacy. Appreciate their time and expertise. Continue to monitor daily weight and I&O. Consider echocardiogram vs waiting to do this outpatient through his safe deposit box rental clerk. ( reports he is due in Sep.) 08/25/17 BUN and creatinine are slowly rising (28 and 1.5); oral fluid intake has been low; urine dark in color. Weight stable at 83 kg. This combined with lower-than- normal BP readings raises concerns about dehydration. Na slightly low at 132. He took spironolactone and furosemide this morning. Metoprolol was held d/t hypotension. Will place a hold on spironolactone and furosemide. Brief episode of confusion last night associated with coughing spell; suspect hypoxic in nature. Today, sats are upper 90s on 2L - attempt weaning. Dig decreased to 2.3. INR therapeutic. Evaluated by therapy - he required standby assist; they are recommending home with home health. Champ and Cathy live in [place] at [facility]. Tele - paced rhythm. <ShoshanaAdeola - Last Filed: 08/25/17 19:47> - Date 08/25/17 Objective Vital signs: Temperature 97.9 F 08/25/17 15:27 Pulse Rate 60 08/25/17 16:08 Respiratory Rate 18 08/25/17 16:59 Blood Pressure 91/58 08/25/17 15:27 Pulse Oximetry 93 08/25/17 15:27 Height/Weight/BMI: Weight 83 kg Results - Labs CBC & Chem 7: 08/25/17 03:54 08/25/17 03:54 Microbiology Results: Microbiology 08/23/17 19:45 Sputum, Expectorated Gram Stain - Final 08/23/17 19:45 Sputum, Expectorated Sputum Culture - Preliminary Early growth Assessment and Plan (1) Digitalis toxicity Current visit: Yes Status: Acute Assessment and Plan: I have independently evaluated and examined this patient. I reviewed the chart, the patient's history, and the DIRECTOR OF HOUSING/PA's documented findings as above. We discussed and formulated the assessment and plan as above with additions as below: Generally doing well, single coughing spell last night but since that time has felt well. Ambulated this morning without lightheadedness or dizziness. expressed concern about dark urine-no heme pigment on repeat UA. Respirations nonlabored, bibasilar crackles present but no wheezing. NAD, gallop rhythm as prior days. Sodium down slightly, urine specific gravity up somewhat from presentation. With blood pressures running slightly low have elected to give 250 mL normal saline. If continues to feel well this afternoon will discharge after fluids given. Discussed with Dr. Lira-discontinued digoxin entirely, decrease Toprol-XL to 50 mg twice a day, follow-up with him next week. Follow-up with Dr. Noel for reassessment of URI in 1-2 weeks. Hospital Course Summary Disclaimer: The visit summary below is not to be considered part of the above Progress Note.
[2017-08-25 11:24] VITALS: TEMP 97.9
[2017-08-25] MEDS ORDERED: WARFARIN 6 MG TABLET PO SCH (12:00)
[2017-08-25] MEDS ORDERED: NS 1,000 ML IV SCH (15:15)
[2017-08-25 15:29] VITALS: BP 91/58; O2SAT 93
[2017-08-25 17:41] VITALS: PULSE 60
[2017-08-25 20:07] VITALS: RESP 16
[2017-08-25] MEDS ORDERED: ROSUVASTATIN 10 MG TABLET PO SCH (21:00)
--- NOTE | 2017-08-25 22:25 | Discharge Summary ---
Discharge Information Date of admission: 08/23/17 18:50 Anticipated date of discharge: 08/25/17 Attending Physician: Adeola Anna MD Primary care physician: River Noel MD - Discharge Diagnosis (1) Digitalis toxicity Status: Acute (2) Rhinovirus infection Status: Acute (3) Ischemic cardiomyopathy Status: Acute (4) Chronic kidney disease, stage 3 Status: Acute Digitalis toxicity Leukocytosis - resolved Chest pain - likely pleuritic Rhinovirus URI Hyponatremia (08/25/17) - Laboratory Labs: On admission 08/23/17 white count was 12.0 with hemoglobin 12.6. Differential was unremarkable. Electrolytes were unremarkable on admission and creatinine was 1.3 with a BUN 24. AST was minimally elevated at 64, bilirubin 1.4. ALT/ alkaline phosphatase normal. Troponin 0.013-0.018-0.022; proBNP 14,100; digoxin level 3.3; and admission INR 2.73 08/25/17 03:54 08/25/17 03:54 - Microbiology Microbiology Respiratory viral panel positive for rhinovirus 08/23/17 19:45 Sputum, Expectorated Gram Stain -moderate WBC, gram-positive cocci 08/23/17 19:45 Sputum, Expectorated Sputum Culture -pending, early growth reported - Radiology Radiology: Chest x-ray on admission demonstrated severely enlarged cardiac silhouette, left pacemaker/defibrillator and decreased pulmonary edema compared to film on 08/08/2017 although there was mild to moderate residual increased vascular markings consistent with mild pulmonary edema/CHF. History of Present Illness HPI: Patient presents to ED today with 3 wk h/o cough, progressive weakness and chest pain with coughing over the past few days. He was seen by his PCP Aug 08 with CXR showing pulmonary edema not excluding possibility of viral or atypical pneumonia. states pt was treated with 10 days of cephalexin and "a shot in the office." She didn't feel he got better and, if anything, maybe got worse while on the atbx. He has clear sputum production occasionally. Patient has CHF and interstitial lung disease, but usually doesn't have a cough or weakness like he does currently. Patient has multiple comorbidities and follows with several specialists. Per , last A1C was 5.6 earlier this year. Patient has lost weight and changed his diet and no longer requires diabetic medication. She also reports his last echocardiogram was almost a year ago. She reports his ejection fraction was 15% . He is due for echocardiogram in September. Per pulmonology office notes, he has abnormal PFTs. PFTs were most recently performed 06/15 and were "relatively stable compared to last year except for decline in DLCO. His TLC is preserved and his vital capacities remain normal." Recommendation from that visit was to repeat PFT in one year, follow-up with hand bookbinder in 6 months and reevaluate his obstructive sleep apnea given his significant weight loss. His last "shock" from his ICD was in December 2016. In ED, patient had repeat CXR showing minimal change from previous on 08/08. His procalcitonin and lactate were normal and WBC was 12K. His dig was elevated at 3.3. His BNP was significantly elevated at 14,100. He was given Lasix 40mg IV in ED for pulmonary edema. He takes Lasix 40mg po qd, although last office note from cardiology lists dose of 40mg BID. Given his elevated digoxin level, patient was admitted to the hospitalist service for observation. Hospital Course This is a general summary of the patient's hospital course. For more details refer to the complete medical record. Hospital course: Acute diagnoses Digitalis toxicitiy Leukocytosis-resolved Chest pain-pleuritic (neg troponin) Cough Rhinovirus URI of an acute Hyponatremia-08/25/17 Chronic diagnoses CKD - Stage 3 CAD COPD BUZZ - (on CPAP and 4L O2 at [facility]) Ischemic cardiomyopathy Interstitial lung disease CHF Paroxysmal VT - (has biventricular ICD) Paroxysmal atrial fibrillation (chronic anticoagulation with warfarin) Hyperlipidemia HTN Diabetes - Type 2 (controlled w/o medication) Hypothyroidism Gout H/o AAA repair H/o bladder CA Hospital course Mr. Zazueta was hospitalized with increased cough from baseline, radiographic findings of mild to moderate pulmonary edema (although stable weight and no symptoms to suggest decompensation beyond cough), and elevated dig level without symptoms suggesting overt toxicity. EKG was unchanged from the past and cardiac rhythm was consistently paced without any change in QRS interval. Digoxin was held on admission. He was diuresed slightly initially after which his home dose diuretic was continued. Following initial diuresis the patient's urine was darker than normal and creatinine increased slightly from 1.3 on admission to 1.5 on the date of discharge with drop in sodium from 136 to 132. The patient's blood pressure was also lower than normal with systolics typically ranging from 80 to the low 90s. Subsequently it was elected to give him a 250 mL bolus of normal saline prior to discharge. It should be noted that the patient was entirely asymptomatic and ambulatory with systolic blood pressures of 80. Following small fluid bolus blood pressure was 91/58 and the patient was felt stable for discharge. Digoxin was discontinued on admission and over the time he was hospitalized level dropped slowly to 2.2 on the date of discharge. Due to the patient's renal insufficiency continued daily dosing was felt excessively risky. Digoxin dosing was discussed with his entry level financial analyst and it was elected to discontinue digoxin entirely. Additionally Dr. French recommended decreasing Toprol-XL dose to 50 mg twice a day in light of relatively low blood pressure seen during the hospitalization pending follow-up in his office next week. Cough present on admission was attributed to rhinovirus URI and possibly mild heart failure. Initiation of albuterol/ipratropium treatments improved cough significantly and he is discharged with Combivent inhaler following instructions on use by respiratory therapy. At discharge the patient has basilar crackles in the posterior lung galeano but no wheezing; cardiac rhythm is regular with gallop present. INR on the date of discharge was 2.31-warfarin dose is unchanged from outpatient regimen. Patient is asked to follow up with Dr. Noel in 1-2 weeks for reassessment of URI symptoms and with Dr. French in one week. Time spent with patient: discharge greater than 30 minutes Discharge Plan - Med Rec/Dispo Referrals/Follow Up: River Noel MD [Family Provider] - (1-2 weeks) Tatianna French MD [Physician] - 1 Week [place] Instructions: Hypoxia (GEN), Digoxin Toxicity (GEN) Prescriptions: New Ipatropium/Albuterol [Combivent Respimat Inhaler] 2 puff INH QID PRN #1 inhaler PRN Reason: Shortness Of Air/Wheezing Continue Furosemide 40 mg PO DAILY #0 Magnesium Oxide 400 mg PO DAILY #0 Allopurinol 100 mg PO DAILY #0 Levothyroxine Sodium 50 mcg PO DAILY #0 Aspirin [Aspirin EC] 81 mg PO DAILY #0 Cyanocobalamin/Cobamamide [B-12 5,000 Mcg Sublingual Tab] 5,000 mcg SL DAILY #0 Warfarin Sodium 3 mg PO [id number]@1700 #0 Warfarin Sodium 6 mg PO MoWeFr@1700 #0 Cyanocobalamin (Vitamin B-12) [Vitamin B-12] 1,000 mcg PO DAILY Spironolactone [Aldactone] 25 mg PO DAILY #0 Folic Acid 1 mg PO DAILY #0 Rosuvastatin Calcium 10 mg PO HS #0 Cholecalciferol (Vitamin D3) [Vitamin D3] 1,000 unit PO DAILY Carboxymethylcellulose O/S [Refresh Celluvisc] 1 drop LEFT EYE TID Changed Metoprolol Succinate 50 mg PO BID #0 Discontinued Digoxin 125 mcg PO DAILY #0 - Disposition 01 Discharged Home, Self-Care - Dismissal Complete Discharge Instructions are:: Complete
[2017-08-26] MEDS ORDERED: Ipatropium/Albuterol 20/100mcg INHALER (4gm) ORAL INH SCH (07:00)
== END 2017-08-25 20:50 | disposition home or self-care (01) | DRG 153 ==
LOC: MED 09:39 → ED 09:39 → MED 13:22
PROVIDERS: ADMIT Internal Medicine; ATTEND Internal Medicine